=== PATIENT | female | born 1985 | race Caucasian/White ===

== ENCOUNTER 2024-10-30 19:45 | Emergency (ER) | payer SELFPAY ==
[2024-10-30 20:59] LABS: Absolute Eosinophils 0.3 K/uL (0-0.5); Absolute Lymphocytes (CBC) 3.1 K/uL (0.7-4.9); Absolute Monocytes 0.3 K/uL (0.1-1.3); Absolute Neutrophil 4.5 K/uL (1.8-8.0); Basophils % 0.5 % (0-1.3); Hemoglobin 14.9 g/dL (12.0-15.0); Lymphocytes % 37.6 % (15.3-44.8); MCHC 33.9 g/dL (32.0-36.0); MCV 88.5 fL (80-100); MPV 8.4 fL (7.6-11.3); Monocytes % 3.6 % (3.3-12.3); Neutrophils % 54.3 % (41.7-73.7); Nucleated Red Blood Cells % 0.1 % (0-0); Platelets 426 thou/uL (152-406); RBC Red Blood Cell Count 4.97 M/uL (3.86-4.86); Red Cell Distribution Width 13.1 % (12.1-15.2)
[2024-10-30 21:09] LABS: Urine Bacteria <20 /HPF (<20); Urine Bilirubin NEGATIVE (Negative); Urine Blood 3+ (Negative); Urine Clarity Extremely Turbid (Clear); Urine Color Yellow (Yellow); Urine Crystals Unidentified Few /HPF (None Seen); Urine Culture Reflex Order NOT NEEDED; Urine Glucose 3+ (Negative); Urine Ketones 1+ (Negative); Urine Microscopic Reflex YN ORDER UMIC; Urine Mucus 3+ /HPF (None Seen); Urine Nitrite 1+ (Negative); Urine Protein TRACE (Negative); Urine RBC <5 /HPF (None Seen); Urine Urobilinogen Normal (Normal); Urine WBC <5 /HPF (<5); Urine WBC Clump Rare /HPF (None Seen); Urine Yeast (Budding) Trace /HPF (None Seen); Urine pH 5.5 (5.0-7.0)
[2024-10-30 21:14] LABS: PT Prothrombin Time 11.8 SECONDS (9.4-12.5); PTT, Activated Partial Thromb 31.9 SECONDS (24.3-36.9); Protime INR 1.13
[2024-10-30 21:18] LABS: Barbiturates NEGATIVE (NEGATIVE); Benzodiazepines NEGATIVE (NEGATIVE); Cocaine NEGATIVE (NEGATIVE); METHAMPHETAM POSITIVE (NEGATIVE); Methadone NEGATIVE (NEGATIVE); Opiates NEGATIVE (NEGATIVE); Phencyclidine NEGATIVE (NEGATIVE); THC Cannibis POSITIVE (NEGATIVE)
[2024-10-30 21:26] LABS: ALT/SGPT 24 U/L (13-56); AST/SGOT 12 U/L (15-37); Albumin 3.5 g/dL (3.4-5.0); Albumin/Globulin Ratio 0.8 (1.1-1.8); Alkaline Phosphatase 116 U/L (45-117); Anion Gap 6.7 mEq/L (5.0-15.0); BUN Blood Urea Nitrogen 10 mg/dL (7-18); Bicarbonate 31 mEq/L (21-32); Bilirubin Total 0.4 mg/dL (0.2-1.0); Globulin 4.5 g/dL (2.3-3.5); Glomerular Filtration Rate 103 ml/min (=/>90); Glucose Level 239 mg/dL (74-106); Potassium 3.7 mEq/L (3.5-5.1); Sodium Level 135 mEq/L (136-145)
[2024-10-30 21:28] LABS: Bilirubin Direct < 0.2 mg/dL (0-0.2); Bilirubin Indirect, Calculated 0.2 mg/dL (0.2-0.8)
--- NOTE | 2024-10-30 21:56 | ER ---
Nurse's Notes [facility] Name: Elizabeth Funez Age: 39 yrs Sex: Female : 1985 Arrival Date: 10/30/2024 Time: 19:45 Bed 14 Private MD: Diagnosis: UTI/ Urinary tract infection, site not specified;Suicidal ideations Presentation: 10/30 19:45 Chief complaint: EMS states: Pt reports SI and wanting to be transferred to [place] for jb4 psychiatric help. Coronavirus screen: At this time, the client does not indicate any symptoms associated with coronavirus-19. Ebola Screen: No symptoms or risks identified at this time. Initial Sepsis Screen: Does the patient meet any 2 criteria? No. Patient's initial sepsis screen is negative. Does the patient have a suspected source of infection? No. Patient's initial sepsis screen is negative. Risk Assessment: Do you want to hurt yourself or someone else? Patient reports desire/thoughts of hurting themselves or someone else. Provider notified. Onset of symptoms was October 30, 2024. 19:45 Method Of Arrival: EMS: [facility] jb4 19:45 Acuity: PAULINO 2 jb4 19:45 Transition of care: patient was not received from another setting of care. jb4 Historical: - Allergies: 19:45 No Known Allergies; jb4 - PMHx: 19:45 Anxiety; Anxiety; Schizophrenia; PTSD; diabetes mellitus; Bipolar disorder; jb4 - PSHx: 19:45 section; jb4 - Immunization history:: Adult Immunizations unknown. - Infectious Disease History:: Denies. - Social history:: Smoking status: Patient reports the use of cigarette tobacco products, smokes one-half pack cigarettes per day, Patient uses alcohol, occasionally. street drugs, Methamphetamine (Meth). Screenin:[address] [facility] ED Fall Risk Assessment (Adult) History of falling in the last 3 months, jb4 including since admission No falls in past 3 months (0 pts) Confusion or Disorientation No (0 pts) Intoxicated or Sedated No (0 pts) Impaired Gait No (0 pts) Mobility Assist Device Used No (0 pt) Altered Elimination No (0 pt) Score/Fall Risk Level 0 - 2 = Low Risk Oriented to surroundings, Maintained a safe environment. Abuse screen: Denies threats or abuse. Nutritional screening: No deficits noted. Tuberculosis screening: No symptoms or risk factors identified. Assessment: 19:45 General: Appears in no apparent distress. comfortable, Behavior is calm, cooperative, jb4 appropriate for age. Pain: Complains of pain in left mormon Pain does not radiate. Pain currently is 4 out of 10 on a pain scale. Neuro: Level of Consciousness is awake, alert, obeys commands, Oriented to person, place, time, situation. Cardiovascular: Patient's skin is warm and dry. Respiratory: Airway is patent Respiratory effort is even, unlabored, Respiratory pattern is regular, symmetrical. Derm: Skin is pink, warm \\T\\ dry. Wound noted left mormon. Musculoskeletal: Circulation, motion, and sensation intact. Range of motion: intact in all extremities. 21:45 Reassessment: Patient appears in no apparent distress at this time. Patient and/or jb4 family updated on plan of care and expected duration. Pain level reassessed. Patient is alert, oriented x 3, equal unlabored respirations, skin warm/dry/pink. 23:45 Reassessment: Pt resting in bed with eyes closed, respirations are even and unlabored. jb4 0218 00:45 Reassessment: Patient appears in no apparent distress at this time. Patient and/or jb4 family updated on plan of care and expected duration. Pain level reassessed. Patient is alert, oriented x 3, equal unlabored respirations, skin warm/dry/pink. 01:45 Reassessment: Patient appears in no apparent distress at this time. Patient and/or jb4 family updated on plan of care and expected duration. Pain level reassessed. Patient is alert, oriented x 3, equal unlabored respirations, skin warm/dry/pink. 01:55 Reassessment: Report given JORGE [facility]. jb4 03:00 Reassessment: Patient appears in no apparent distress at this time. Patient and/or cp4 family updated on plan of care and expected duration. Pain level reassessed. Patient is alert, oriented x 3, equal unlabored respirations, skin warm/dry/pink. General:. 04:00 Reassessment: Patient appears in no apparent distress at this time. Patient and/or cp4 family updated on plan of care and expected duration. Pain level reassessed. Patient is alert, oriented x 3, equal unlabored respirations, skin warm/dry/pink. 05:00 Reassessment: Patient appears in no apparent distress at this time. Patient and/or cp4 family updated on plan of care and expected duration. Pain level reassessed. Patient is alert, oriented x 3, equal unlabored respirations, skin warm/dry/pink. 06:00 Reassessment: Patient appears in no apparent distress at this time. Patient and/or cp4 family updated on plan of care and expected duration. Pain level reassessed. Patient is alert, oriented x 3, equal unlabored respirations, skin warm/dry/pink. 07:00 Reassessment: Received patient in paper scrubs, SI precautions in place - room checked ld1 and verified of safety, SI paperwork completed and given to charge nurse. Breakfast tray ordered. Pt reports being "Depressed and having suicidal thoughts, I do have a plan to inject myself with medicine to make my heart stop." Stated - I am not on my medicine because my boyfriend who I live with wont take me to get my medicine. 08:59 Reassessment: Patient appears in no apparent distress at this time. No changes from ld1 previously documented assessment. Patient and/or family updated on plan of care and expected duration. Pain level reassessed. Patient is alert, oriented x 3, equal unlabored respirations, skin warm/dry/pink. 08:59 Reassessment: Pt received items from security. Sent with EMS to [facility]. ld1 Psych: 10/30 19:45 [place] Suicide Severity Screening: In the past month, have you wished you were jb4 or wished you could go to sleep and not wake up? Patient responds "yes." Based off the client's responses additional C-SSRS screening is required. "In the past month, have you actually had any thoughts of killing yourself?" Patient responds "yes." Based off the client's response additional [place] suicide severity screening questions to be further documented on paper forms. "In your lifetime, have you ever done anything, started to do anything, or prepared to do anything to end your life?" Patient responds "yes." Patient reports suicidal intent within 3 past months. Subjective: Patient's mood is sad, hopeless, Delusions are denied, Hallucinations are denied Having thoughts of suicide. Plan for suicide is to hang myself. Objective: Patient is cooperative, Speech is normal, Affect is blunted. Interventions: Removed personal items and placed in bag. Patient placed in hospital gown. Searched person for dangerous items. Urine collected and sent for urine drug test. Belonging list filled out. Safety Checks: Personal items have been removed. Door is open. No visitors are present at this time. Patient uses methamphetamines Last use was 2 days ago. Commitment: Patient will be a voluntary commitment. Vital Signs: 19:45 BP 149 / 87; Pulse 75; Resp 16; Temp 97.8(O); Pulse Ox 98% on R/A; Weight 95.25 kg; jb4 Height 5 ft. 8 in. ; 10/31 06:44 BP 140 / 85; Pulse 74; Resp 16; Temp 97.6; Pulse Ox 99% ; rk3 10/30 19:45 Body Mass Index 31.93 (95.25 kg, 172.72 cm) jb4 ED Course: 10/30 19:45 Patient has correct armband on for positive identification. Bed in low position. Call jb4 light in reach. Side rails up X 1. Provided Education on: plan of care. 19:45 No provider procedures requiring assistance completed. jb4 19:54 Patient arrived in ED. lg3 19:57 Jose Elias Callahan PA is PHCP. cp 19:57 Key Gupta MD is Attending Physician. cp 20:33 Triage completed. jb4 20:39 Arm band placed on right wrist. jb4 20:52 Initial lab(s) drawn, by tx, sent to lab. Urine collected:. Inserted saline lock: 20 rk3 gauge in left antecubital area, using aseptic technique. Missed attempt(s): 20 gauge in right antecubital area. 20:54 Diet: Patient given snack. rk3 22:35 Contacted [facility] for evaluation. rv1 22:54 Gabriella with [facility] gave 1 hour and 30 min ETA. rv1 23:58 Papo Finch, RN is Primary Nurse. jb4 10/31 01:36 Faxed pt clinicals to the following facilities for placement; [place] [address] [place], [place]. 01:45 Remy Koenig MD is Attending Physician. cp 07:56 re faxed chart to [place] . bd 08:36 pt accepted in transfer to [facility] by dr Hawkins admin approval given by Michel Zhu 09:00 IV discontinued, intact, bleeding controlled, No redness/swelling at site. ld1 Administered Medications: 10/30 22:32 Drug: Rocephin IV 1 grams IV at calculated rate once; Given slow IV push per pharmacy jb4 instructions Route: IV; Rate: calculated rate; Site: left antecubital; 22:35 Follow up: Response: No adverse reaction; IV Status: Completed infusion; IV Intake: [id number] 22:32 Drug: NS 0.9% IV 1000 ml IV at 1000 ml once; to be given as a bolus over 60 minutes jb4 Route: IV; Rate: 1000 ml; Site: left antecubital; 23:32 Follow up: Response: No adverse reaction; IV Status: Completed infusion; IV Intake: jb4 1000ml 10/31 00:29 Drug: Insulin Regular Human Sub-Q 10 units Sub-Q once {Co-Signature: jose (chelo Cox).} Route: Sub-Q; Site: right upper abdomen; 01:44 Follow up: Response: No adverse reaction; Blood sugar is lowered jb4 01:45 Drug: Insulin Regular Human Sub-Q 10 units Sub-Q once {Co-Signature: chelo (Papo Finch RN).} Route: Sub-Q; Site: right lower abdomen; 04:02 CANCELLED (Physician Discretion): insulin regular human10 units Sub-Q once lg3 Medication: 10/30 23:45 VIS not applicable for this client. jb4 Intake: 22:35 IV: 10ml; Total: 10ml. jb4 23:32 IV: 1000ml; Total: 1010ml. jb4 Outcome: 21:55 ER care complete, transfer ordered by MD. mittal 10/31 09:00 Transferred by ground EMS ld1 Condition: stable Discharge instructions given to patient, Instructed on the need for transfer, Demonstrated understanding of instructions, 09:00 Patient left the ED. ld1 Signatures: Freya Morgan Corey, PA PA cp Bryson, James, RN RN derick4 Paulette Steele RN JORGE lg3 Holly Main RN RN ld1 Sarina Johnson rv1 Sonja Cox cp4 Percy Torres RN RN bm8 Torie Bermudez 3 Sonja Cox Papo Finch RN jb4 Corrections: (The following items were deleted from the chart) 10/30 19: 20:32 Chief complaint: EMS states: Pt reports SI and wanting to be transferred to [address] for psychiatric help. [facility] : 20:32 Coronavirus screen: At this time, the client does not indicate any symptoms jb4 associated with coronavirus-19. [facility] 20:32 Ebola Screen: No symptoms or risks identified at this time. [place] [id number] : 20:32 Initial Sepsis Screen: Does the patient meet any 2 criteria? No. Patient's [facility] initial sepsis screen is negative. Does the patient have a suspected source of infection? No. Patient's initial sepsis screen is negative. [facility] 20:32 Onset of symptoms was October 30, 2024 [place] [id number] :37 20:32 Transition of care: patient was not received from another setting of care. [place] [id number] : 20:32 Risk Assessment: Do you want to hurt yourself or someone else? Patient reports 4 desire/thoughts of hurting themselves or someone else. Provider notified. [facility] : 20:32 Method Of Arrival: EMS: [facility] [place] [id number] :37 20:32 BP 149 / 87; Pulse 75bpm; Resp 16bpm; Pulse Ox 98% RA; Temp 97.8F Oral; 95.25 kg; 4 Height 5 ft. 8 in.; BMI: 31.9; [facility] :37 20:32 Acuity: PAULINO 2 [place] [id number]
--- NOTE | 2024-10-30 21:56 | EDPHYS ---
Physician Documentation [facility] Name: Elizabeth Funez Age: 39 yrs Sex: Female : 1985 Arrival Date: 10/30/2024 Time: 19:45 Bed 14 Private MD: ED Physician Remy Koenig HPI: 10/30 20:40 This 39 yrs old Female presents to ER via EMS with complaints of Suicidal Ideation. cp 20:40 The patient presents to the emergency department with a history of substance abuse, cp Type: methamphetamines, suicide ideation, and the patient has a plan, to hang oneself. Onset: The symptoms/episode began/occurred today. Past psychiatric history: Prior diagnosis: bipolar disorder, schizophrenia, Psychiatric medications include: none. Associated signs and symptoms: Pertinent negatives: abdominal pain, chest pain, delusions, fever, hallucinations, homicidal ideation, vomiting. Severity of symptoms: in the emergency department the symptoms are unchanged despite EMS interventions. Historical: - Allergies: 19:45 No Known Allergies; jb4 - PMHx: 19:45 Anxiety; Anxiety; Schizophrenia; PTSD; diabetes mellitus; Bipolar disorder; jb4 - PSHx: 19:45 section; jb4 - Immunization history:: Adult Immunizations unknown. - Infectious Disease History:: Denies. - Social history:: Smoking status: Patient reports the use of cigarette tobacco products, smokes one-half pack cigarettes per day, Patient uses alcohol, occasionally. street drugs, Methamphetamine (Meth). ROS: 20:45 Eyes: Negative for injury, pain, redness, and discharge, cp 20:45 Constitutional: Negative for body aches, chills, fever, poor PO intake, 20:45 ENT: Negative for drainage from ear(s), ear pain, sore throat, difficulty swallowing, difficulty handling secretions, 20:45 Cardiovascular: Negative for chest pain, palpitations, 20:45 Respiratory: Negative for cough, shortness of breath, wheezing, 20:45 Skin: Positive for swelling, of the face, 20:45 Neuro: Negative for altered mental status, dizziness, headache, weakness, 20:45 Psych: Positive for suicidal ideation, 20:45 All other systems are negative, Exam: 20:50 Constitutional: The patient appears in no acute distress, alert, awake, cp non-diaphoretic, non-toxic, well developed, well nourished, 20:50 Head/face: Noted is swelling, that is mild, of the left faith and above right eye, cp 20:50 Eyes: Pupils: equal, round, and reactive to light and accomodation, Extraocular movements: intact throughout, Conjunctiva: normal, no exudate, no injection, Sclera: no appreciated abnormality, 20:50 ENT: External ear(s): are unremarkable, Nose: is normal, Mouth: Lips: moist, Oral mucosa: pink and intact, moist, Posterior pharynx: Airway: no evidence of obstruction, patent, 20:50 Chest/axilla: Inspection: normal, 20:50 Cardiovascular: Rate: normal, Rhythm: regular, 20:50 Respiratory: the patient does not display signs of respiratory distress, Respirations: normal, no use of accessory muscles, no retractions, labored breathing, is not present, Breath sounds: are clear throughout, no decreased breath sounds, no stridor, no wheezing, 20:50 Abdomen/GI: Inspection: abdomen appears normal, Palpation: abdomen is soft and non-tender, in all quadrants, 20:50 Neuro: Orientation: to person, place \T\ time. Mentation: is normal, Motor: moves all fours, strength is normal, Vital Signs: 19:45 BP 149 / 87; Pulse 75; Resp 16; Temp 97.8(O); Pulse Ox 98% on R/A; Weight 95.25 kg; jb4 Height 5 ft. 8 in. ; 10/31 06:44 BP 140 / 85; Pulse 74; Resp 16; Temp 97.6; Pulse Ox 99% ; rk3 10/30 19:45 Body Mass Index 31.93 (95.25 kg, 172.72 cm) jb4 MDM: 10/30 19:57 Medical Screening Exam initiated cp 21:00 Differential diagnosis: drug withdrawal. acute psychotic break, depression, psychosis cp secondary to non-compliance. 21:35 Data reviewed: vital signs, nurses notes, lab test result(s), EKG. 21:35 I considered the following discharge prescriptions or medication management in the emergency department Medications were administered in the Emergency Department. See MAR. Independent interpretation of the following test(s) in the Emergency Department EKG: See my EKG interpretation above. 10/31 01:45 Management of patient was discussed with the following: Behavioral Health Provider: kyrie recommends transfer for inpatient psych treatment. 10/30 20:33 Order name: Acetaminophen; Complete Time: 21:32 cp 10/30 20:33 Order name: Basic Metabolic Panel; Complete Time: 21:32 cp 10/30 21:32 Interpretation: Normal except: NA 135; GLUC 239. cp 10/30 20:33 Order name: CBC with Diff; Complete Time: 21:32 cp 10/30 21:33 Interpretation: Normal except: RBC 4.97; PLT 426. cp 10/30 20:33 Order name: ETOH Level; Complete Time: 21:32 cp 10/30 20:33 Order name: Hepatic Function; Complete Time: 21:32 cp 10/30 21:33 Interpretation: Normal except: AST 12; GLOB 4.5; A/G 0.8. cp 10/30 20:33 Order name: PT-INR; Complete Time: 21:32 cp 10/30 20:33 Order name: Test, Urine; Complete Time: 21:32 cp 10/30 20:33 Order name: Ptt, Activated; Complete Time: 21:32 cp 10/30 20:33 Order name: Salicylate; Complete Time: 21:32 cp 10/30 20:33 Order name: Urinalysis w/ reflexes; Complete Time: 21:32 cp 10/30 21:33 Interpretation: Normal except: [facility] Extremely Turbid; UGLUC 3+; UKET 1+; UBLD 3+; UPROT cp TRACE; UNIT 1+; UESTR 25; MUCUS 3+; BYST Trace. 10/30 20:33 Order name: Urine Drug Screen; Complete Time: 21:32 cp 10/30 21:33 Interpretation: Normal except: METHAMPHETAMINE POSITIVE; THC POSITIVE. 10/31 00:25 Order name: Glucose, Ancillary Testing; Complete Time: 03:46 EDMS 10/31 01:50 Order name: Glucose, Ancillary Testing; Complete Time: 03:46 EDMS 10/31 04:11 Order name: Glucose, Ancillary Testing EDHI 10/30 20:33 Order name: EKG; Complete Time: 20:34 cp 10/30 20:33 Order name: EKG - Nurse/Tech; Complete Time: 20:40 cp 10/30 20:33 Order name: IV Saline Lock; Complete Time: 20:40 10/30 20:33 Order name: Labs collected and sent; Complete Time: 20:40 cp 10/30 20:33 Order name: Suicide Screening ([place]); Complete Time: 20:40 cp Administered Medications: 10/30 22:32 Drug: Rocephin IV 1 grams IV at calculated rate once; Given slow IV push per pharmacy jb4 instructions Route: IV; Rate: calculated rate; Site: left antecubital; 22:35 Follow up: Response: No adverse reaction; IV Status: Completed infusion; IV Intake: [id number] 22:32 Drug: NS 0.9% IV 1000 ml IV at 1000 ml once; to be given as a bolus over 60 minutes jb4 Route: IV; Rate: 1000 ml; Site: left antecubital; 23:32 Follow up: Response: No adverse reaction; IV Status: Completed infusion; IV Intake: jb4 1000ml 10/31 00:29 Drug: Insulin Regular Human Sub-Q 10 units Sub-Q once {Co-Signature: kyrie4 (chelo Cox).} Route: Sub-Q; Site: right upper abdomen; 01:44 Follow up: Response: No adverse reaction; Blood sugar is lowered jb4 01:45 Drug: Insulin Regular Human Sub-Q 10 units Sub-Q once {Co-Signature: jb4 (Papo Finch RN).} Route: Sub-Q; Site: right lower abdomen; 04:02 CANCELLED (Physician Discretion): insulin regular human10 units Sub-Q once lg3 Disposition Summary: 10/30/24 21:55 Transfer Ordered Notes: Transfer Location: [facility] Facility cp Reason: Higher level of care cp Condition: Stable cp Problem: new cp Symptoms: have improved cp Accepting Physician: doctor(10/31/24 09:00) ld1 Diagnosis - UTI/ Urinary tract infection, site not specified cp - Suicidal ideations cp Forms: - Medication Reconciliation Form cp - SBAR form cp Signatures: Dispatcher [employer] Jose Elias Reagan PA PA cp Bryson, James RN RN jb4 Holly Main RN RN ld1 Lauryn Cantrell PABasilio PAPercy Salcedo RN RN [id number] Paulette Steele RN lg3 Sonja Cox cp4 Papo Finch RN jb4 Corrections: (The following items were deleted from the chart) 10/30 20:34 20:34 ACETAMINOPHEN+C.LAB.BRZ ordered. EDMS EDMS 20:34 20:34 BASIC METABOLIC PANEL+C.LAB.BRZ ordered. EDMS EDMS 20:34 20:34 CBC+H.LAB.BRZ ordered. EDMS EDMS 20:34 20:34 ETHANOL+C.LAB.BRZ ordered. EDMS EDMS 20:34 20:34 HEPATIC FUNCTION+C.LAB.BRZ ordered. EDMS EDMS 20:34 20:34 PROTIME (+INR)+COAG.LAB.BRZ ordered. EDMS EDMS 20:34 20:34 Test, Urine+UC.LAB.BRZ ordered. EDMS EDMS 20:34 20:34 PTT, ACTIVATED+COAG.LAB.BRZ ordered. EDMS EDMS 20:34 20:34 SALICYLATE+C.LAB.BRZ ordered. EDMS EDMS 20:34 20:34 Urinalysis+U.LAB.BRZ ordered. EDMS EDMS 20:34 20:34 URINE DRUG SCREEN+UC.LAB.BRZ ordered. EDMS EDMS 10/31 02:16 02:14 Constitutional: Negative for cp cp 04:02 03:47 Insulin Regular Human Sub-Q 10 units Sub-Q once ordered. sb4 lg3 09:00 10/30 21:55 doctor cp ld1
[2024-10-30] MEDS ORDERED: NA CHLORIDE 0.9% 1,000 ML ONE (22:10)
[2024-10-30] MEDS ORDERED: CEFTRIAXONE 1000 MG/VIAL ONE (22:10)
[2024-10-31] MEDS ORDERED: INSULIN REGULAR (HUMAN) 100 UNIT/ML ONE ×2 (00:25→01:41)
[2024-10-31 10:10] VITALS: BP 140/85; TEMP 97.6; O2SAT 99
== END 2024-10-31 09:00 ==
LOC: ER 19:45
DX: R45.851 Suicidal ideations (principal); N39.0 Urinary tract infection, site not specified; F15.90 Other stimulant use, unspecified, uncomplicated; F20.9 Schizophrenia, unspecified; F43.10 Post-traumatic stress disorder, unspecified; F31.9 Bipolar disorder, unspecified; F41.9 Anxiety disorder, unspecified; E11.9 Type 2 diabetes mellitus without complications; F17.210 Nicotine dependence, cigarettes, uncomplicated
CPT/HCPCS: 36415; 80048; 80076; 80143; 80179; 80307; 81001; 81025; 82077; 82947; 85025; 85610; 85730; J0696; J7030